=== PATIENT | male | born 1980 | race Caucasian/White ===

== ENCOUNTER 2023-02-07 11:44 | Emergency (ER) | payer OTHER, SELFPAY ==
[2023-02-07] VITALS (38 sets, daily range): BP systolic 136–149; BP diastolic 70–97; PULSE 63–76; RESP 2–26; TEMP 37.1; O2SAT 98
--- NOTE | 2023-02-07 12:03 | DI.CT_ITS ---
Exam(s) CT HEAD FACIAL WO EXAM: CT HEAD FACIAL WO CT HEAD FACIAL WO do facial CT face CLINICAL HISTORY: right lower facial droop upon waking at 0800,sensation of right facial full. TECHNIQUE: Imaging Protocol: Axial computed tomography images with coronal and sagittal reformatted images were created and reviewed COMPARISON: No exams were available for comparison FINDINGS: CT Head: Ventricles and Extra axial spaces: Normal in size and morphology for the patient's age. Hemorrhage: None. Cerebral parenchyma: Normal. Midline shift: None. Brainstem/Cerebellum: Normal. Calvarium: Normal. Visualized Paranasal sinuses/Mastoids: Minimal mucosal thickening. Soft Tissues: Unremarkable. CT Face: Facial Bones: No fracture is noted in facial bones. No destructive bony lesions. Sinuses and Mastoids: Minimal mucosal thickening. Globes, extraocular muscles, optic nerves and retrobulbar fat: Normal. Nasal septum deviated toward the right. Nasal cavity clear. Upper aerodigestive tract: Normal. Mandible and bilateral temporomandibular joints: Normal. Soft tissues: Normal. IMPRESSION: 1. No acute intracranial process. 2. No acute facial fracture. Minimal sinus mucosal thickening. RADIATION DOSE DELIVERED: 1,529.06mGy.cm Total DLP 1,529.06mGy.cm Total DLP DATA REPOSITORY: All CT scans at this facility are submitted to the National Radiology Data Registry (NRDR) Dose Index Registry (DIR) with the [employer] (ACR). RADIATION OPTIMIZATION: All CT scans at this facility use at least one of these dose optimization te chniques: automated exposure control; mA and/or kV adjustment per patient size (includes targeted exa ms where dose is matched to clinical indication); or iterative reconstruction. Is stool is 40 reasonably winged
--- NOTE | 2023-02-07 12:09 | ED.GENADUL_ITS ---
Discharge Plan Disposition Patient Disposition: Home Condition: Good Discharge Details Clinical Impression: Dubois's palsy Primary Care Provider: Unknown,Unknown ED Provider: Chely Ray Home Meds and New Rx's Prescriptions: New prednisolone sodium phosphate 30 mg tablet,disintegrating 30 mg PO BID Qty: 19 0RF Discharge Instructions Instructions: Dubois Palsy (ED) Additional Instructions: Take the steroid medication twice a day for the next 10 days. Call your primary care doctor on Wednesday to schedule an appointment within one week to followup on your visit here. Return to the emergency department for new or worsening symptoms. Medical Decision Making 43yo M with hx of HTN presenting for right sided facial droop and numbness. Last known normal yesterday evening at round 11pm prior to bed. This morning woke at 0900 with with sensation of fullness in his right cheek, right facial droop, and blurry vision on right. Reports vision essentially back to baseline on arrival. Vital signs reassuring; on exam he has right facial droop with no dysarthria, symmetric eyebrow raise, subjectively diminished sensation V1/V2/V3 on right. No other focal neurologic deficits. Does have some slight right maxillary tenderness. NIHSS 2 and symptoms improving. Given minor improving symptoms with LKN yesterday evening, would not do TPA regardless of etiology. Forehead sparing concerning for CVA/TIA rather than Dubois's palsy. Non-contrast head CT ordered and reviewed, no bleed or indication of acute stroke on my view, agree with radiology read below. CTA head and neck reviewed, no clear large vessel occlusion, agree with radiology read below. Labs as below, CBC & CMP unremarkable, UA negative, no suggestion of other etiology for patient's symptoms. EKG NSR, troponin negative, no chest pain. On reassessment patient reports symptoms have almost entirely resolved; no blurry vision, numbness improved, does have some continued right facial droop which is improving. Discussed with neurology Dr. Rodriguez at [facility]; symptoms thought to be most consistent with Dubois's palsy especially given watery right eye and sensation of cheek/ear fullness. Lyme panel sent, given first dose prednisolone here and discharged home on 10 course. Given eye patch to wear at night for protection. Discharged home; discharge instructions including return precautions were reviewed with patient who verbalized understanding. All questions were answered and they are in full agreement with the plan. Imaging Data Radiologic Study: Imaging: CT Scan Radiologist's impression: IMPRESSION: No acute intracranial abnormality. Radiologic Study #2: Imaging: CT Scan Radiologist's impression: IMPRESSION: No acute findings. Radiologic Study #3: Imaging: CT Scan Radiologist's impression: IMPRESSION: No significant intracranial vascular stenosis.? No large vessel occlusion. If further evaluation for recent, acute or subacute ischemic change is indicated, MR correlation recommended. Lab Data Lab results reviewed: Yes I reviewed the patient's lab results. Labs: Laboratory Tests Range/Units 02/07/23 02/07/23 02/07/23 12:10 12:10 12:10 WBC (4.4-10.8) 10^3/uL 9.44 RBC (4.36-5.78) 10^6/uL 5.01 Hgb (13.5-17.5) g/dL 14.9 Hct (40.0-50.0) % 43.5 MCV (80-95) fL 87 MCH (27.0-33.0) pg 29.7 MCHC (32.0-36.0) % 34.3 RDW (11.8-14.1) % 12.0 Plt Count (130-400) 10^3/uL 410 H MPV (8.0-11.0) fL 9.7 Immature Gran % 0.5 Neutrophils % 53.6 Lymphocytes % 32.3 Monocytes % 10.6 Eosinophils % 2.5 Basophils % 0.5 Nucleated RBC % (0.0-0.3) % 0.0 Absolute Neutrophils (1.2-6.7) 10^3/uL 5.05 Absolute Lymphocytes (1.2-3.4) 10^3/uL 3.05 Absolute Monocytes (0.1-0.8) 10^3/uL 1.00 H Absolute Eosinophils (0.0-0.7) 10^3/uL 0.24 Absolute Basophils (0.0-0.2) 10^3/uL 0.05 PT (9.3-11.0) sec 10.0 INR (0.9-1.1) 1.0 Sodium (136-145) mmol/L 140 Potassium (3.5-5.1) mmol/L 3.9 Chloride (98-107) mmol/L 103 Carbon Dioxide (21.0-32.0) mmol/L 28.1 Anion Gap (3-11) mmol/L 8.9 BUN (7-18) mg/dL 13 Creatinine (0.70-1.30) mg/dL 1.1 Est GFR (CKD-EPI 2020) (mL/min/1.73m2) 84.89 Glucose (74-106) mg/dL 80 Calcium (8.5-10.1) mg/dL 9.7 Magnesium (1.8-2.4) mg/dL 1.9 Total Bilirubin (0.2-1.0) mg/dL 0.5 AST (15-37) U/L 29 ALT (16-63) U/L 40 Alkaline Phosphatase (46-116) U/L 74 Troponin I (<or=60) ng/L < 50 Total Protein (6.4-8.2) g/dL 7.9 Albumin (3.4-5.0) g/dL 3.7 Urine Color (Yellow) Urine Clarity (Clear) Urine pH (5-8) Ur Specific [place] (1.005-1.025) Urine Protein (Negative) mg/dL Urine Ketones (Negative) mg/dL Urine Blood (Negative) Urine Nitrite (Negative) Urine Bilirubin (Negative) Urine Urobilinogen (Up to 0.2) mg/dL Ur Leukocyte Esterase (Negative) Urine Glucose (Negative) mg/dL Urine Opiates Screen (Negative) Urine Methadone Screen (Negative) Ur Barbiturates Screen (Negative) Ur Tricyclics Screen (Negative) Ur Amphetamines Screen (Negative) U Benzodiazepines Scrn (Negative) Urine Cocaine Screen (Negative) Ur THC Screen (Negative) Range/Units 02/07/23 02/07/23 12:32 12:32 WBC (4.4-10.8) 10^3/uL RBC (4.36-5.78) 10^6/uL Hgb (13.5-17.5) g/dL Hct (40.0-50.0) % MCV (80-95) fL MCH (27.0-33.0) pg MCHC (32.0-36.0) % RDW (11.8-14.1) % Plt Count (130-400) 10^3/uL MPV (8.0-11.0) fL Immature Gran % Neutrophils % Lymphocytes % Monocytes % Eosinophils % Basophils % Nucleated RBC % (0.0-0.3) % Absolute Neutrophils (1.2-6.7) 10^3/uL Absolute Lymphocytes (1.2-3.4) 10^3/uL Absolute Monocytes (0.1-0.8) 10^3/uL Absolute Eosinophils (0.0-0.7) 10^3/uL Absolute Basophils (0.0-0.2) 10^3/uL PT (9.3-11.0) sec INR (0.9-1.1) Sodium (136-145) mmol/L Potassium (3.5-5.1) mmol/L Chloride (98-107) mmol/L Carbon Dioxide (21.0-32.0) mmol/L Anion Gap (3-11) mmol/L BUN (7-18) mg/dL Creatinine (0.70-1.30) mg/dL Est GFR (CKD-EPI 2020) (mL/min/1.73m2) Glucose (74-106) mg/dL Calcium (8.5-10.1) mg/dL Magnesium (1.8-2.4) mg/dL Total Bilirubin (0.2-1.0) mg/dL AST (15-37) U/L ALT (16-63) U/L Alkaline Phosphatase (46-116) U/L Troponin I (<or=60) ng/L Total Protein (6.4-8.2) g/dL Albumin (3.4-5.0) g/dL Urine Color (Yellow) Yellow Urine Clarity (Clear) Clear Urine pH (5-8) 6.0 Ur Specific [place] (1.005-1.025) 1.020 Urine Protein (Negative) mg/dL Negative Urine Ketones (Negative) mg/dL Negative Urine Blood (Negative) Negative Urine Nitrite (Negative) Negative Urine Bilirubin (Negative) Negative Urine Urobilinogen (Up to 0.2) mg/dL 1.0 H Ur Leukocyte Esterase (Negative) Negative Urine Glucose (Negative) mg/dL Negative Urine Opiates Screen (Negative) Negative Urine Methadone Screen (Negative) Negative Ur Barbiturates Screen (Negative) Negative Ur Tricyclics Screen (Negative) Negative Ur Amphetamines Screen (Negative) Negative U Benzodiazepines Scrn (Negative) Negative Urine Cocaine Screen (Negative) Negative Ur THC Screen (Negative) Positive A HPI General Mode of arrival: ambulatory . Date/Time Provider Initiated Documentation: 02/07/23 12:03 . Limitations to Documentation: no limitations . Information obtained by: patient and family . HPI Narrative: 43yo M with hx of HTN presenting for right sided facial droop and numbness. Last known normal yesterday evening at round 11pm prior to bed. This morning woke at 0900 with with sensation of fullness in his right cheek, right facial droop, and blurry vision on right. Vision is improving and now almost back to baseline; 'fullness' and droop persist. Aside from face, no numbness/tingling/weakness. No headache, nausea, vomiting, double vision. No recent injury/surgery/fall. Has never experienced similar symptoms in the past. URI symptoms one week ago, since resolved. He is otherwise in his usual state of health. Related Data Home Medications Medication Instructions Recorded Confirmed prednisolone sodium phosphate 30 30 mg PO BID #19 tabs 02/07/23 mg disintegrating tablet Previous Rx's Medication Instructions Recorded prednisolone sodium phosphate 30 30 mg PO BID #19 tabs 02/07/23 mg disintegrating tablet General Stated Complaint: FacialProb CAROL: 3 Review of Systems Narrative: see HPI PFSH All Active Problems (Updated 02/07/23 @ 15:57 by Chely Ray MD) Dubois's palsy (Acute) Social History Smoking/Tobacco Use Status: Current-Occasional Tobacco Type: cigars Smoking risk assessment performed?: Yes Alcohol Intake: current Alcohol Intake frequency: a few times a week Substance use type: marijuana Housing: house Do you feel safe at home: Yes Do you feel safe in your relationship?: Yes Exam Narrative Exam Narrative: General: Alert, well appearing, well nourished, in no acute distress. Head: Normocephalic, atraumatic Neck: Trachea midline, Neck supple. ENT: MMM. No oropharygeal lesions or exudate. Slight right maxillary tenderness TTP Cardiac: RRR, no murmurs appreciated Resp: No respiratory distress. CTAB. Abd: Soft, non-distended, nontender : No suprapubic tenderness. Extremities: No deformities. No peripheral edema. Neuro: GCS 15. PERRLA. EOMI. Fluent speech, no dysarthria. Motor- 5/5 strength symmetric bilateral upper and lower extremities Sensation- Intact to light touch and symmetric multiple dermatomes including upper and lower extremities Coordination- No dysmetria on finger to nose Gait/station: Normal stance. No truncal ataxia. Steady gait with equal normal steps CRANIAL NERVES: II: Pupils equal and reactive, III, IV, : EOM intact, no gaze preference or deviation, no nystagmus. V: Diminished sensation in V1, V2, and V3 segments right compared to left. VII: Right facial droop. Symmetric eyebrow raise. VIII: normal hearing to speech IX, X: normal palatal elevation, no uvular deviation XI: 5/5 head turn and 5/5 shoulder shrug bilaterally XII: midline tongue protrusion Course Vital Signs Vital signs: Vital Signs Temperature 37.1 C 02/07/23 11:46 Pulse 69 02/07/23 11:46 Respiratory Rate 18 02/07/23 11:46 Blood Pressure 149/97 H 02/07/23 11:46 Pulse Oximetry 98 02/07/23 11:46 Temperature 37.1 C 02/07/23 11:46 Pulse 69 02/07/23 11:46 Respiratory Rate 18 02/07/23 11:46 Respiratory Effort Normal 02/07/23 11:55 Blood Pressure 149/97 H 02/07/23 11:46 Blood Pressure Position Sitting 02/07/23 11:46 Pulse Oximetry 98 02/07/23 11:46 Oxygen Delivery Method Room Air 02/07/23 11:46 Oxygen Flow Rate 0 02/07/23 11:46 Pain Level 5 02/07/23 11:53 PAWSS Have you Been Recently Intoxicated or Drunk Within the Last 30 days?: No Have you Ever Experienced Previous Episodes of Alcohol Withdrawal?: No Have you ever Experienced Withdrawal Seizures?: No Have you ever Experienced Delirium Tremens(DT)s?: No Have you ever undergone Alcohol Rehabilitation Treatment (i.e, inpt ot outpatient treatment programs)?: No Have you ever Experienced Blackouts?: No Have you ever Combined Alcohol with other Downers within the last 90 days?: No Have you ever Combined Alcohol with any other Substance of Abuse during the last 90 days?: No Positive Blood Alcohol level on Presentation? [PCS.BAL]: No Evidence of Increased Autonomic Activity (i.e. HR>120, tremor, sweating, agitation, nausea)?: No Result: 0
[2023-02-07 12:21] LABS: Abs Immature Grans 0.05 10^3/uL (0.0-0.06); Absolute Basophil Count 0.05 10^3/uL (0.0-0.2); Absolute Eosinophil Count 0.24 10^3/uL (0.0-0.7); Absolute Lymphocyte Count 3.05 10^3/uL (1.2-3.4); Absolute Neutrophil Count 5.05 10^3/uL (1.2-6.7); Basophils % 0.5; Eosinophils % 2.5; HCT 43.5 % (40.0-50.0); HGB 14.9 g/dL (13.5-17.5); Immature Grans % 0.5; Lymphocytes % 32.3; MCH 29.7 pg (27.0-33.0); MCHC 34.3 % (32.0-36.0); MCV 87 fL (80-95); MPV 9.7 fL (8.0-11.0); Monocytes % 10.6; Neutrophils % 53.6; Platelet Count 410 10^3/uL (130-400); RBC 5.01 10^6/uL (4.36-5.78); RDW-SD 38.6 fL; WBC 9.44 10^3/uL (4.4-10.8)
--- NOTE | 2023-02-07 12:31 | DI.VRAD_ITS ---
PROCEDURE INFORMATION: Exam: CT Head Without Contrast Exam date and time: 02/07/2023 12:19 PM Age: 43 years old Clinical indication: Stroke-like symptoms; Other: Right lower facial droop upon waking at 0800, sensation of right facial full TECHNIQUE: Imaging protocol: Computed tomography of the head without contrast. Radiation optimization: All CT scans at this facility use at least one of these dose optimization techniques: automated exposure control; mA and/or kV adjustment per patient size (includes targeted exams where dose is matched to clinical indication); or iterative reconstruction. Other technique: STROKE PROTOCOL was implemented. COMPARISON: No relevant prior studies available. FINDINGS: Brain: Ventricles, sulci are within normal limits. There is no acute hemorrhage. There is no mass or shift. There is no acute cortical or major vascular territory infarct. There are no significant extra-axial collections. There is no hyperdense intravascular thrombus. Cerebral ventricles: No ventricular enlargement/hydrocephalus. Paranasal sinuses: Visualized sinuses are unremarkable. No fluid levels. Mastoid air cells: Visualized mastoid air cells are well aerated. Bones/joints: Unremarkable. No acute fracture. Mild degenerative changes are seen in the upper cervical spine. Soft tissues: Unremarkable. IMPRESSION: No acute intracranial abnormality. ASSESSMENT: ASPECTS ([place] Stroke Program Early CT Score) is 10. PROCEDURE INFORMATION: Exam: CT Maxillofacial Without Contrast Exam date and time: 02/07/2023 12:19 PM Age: 43 years old Clinical indication: Stroke-like symptoms; Other: Right lower facial droop upon waking at 0800, sensation of right facial full TECHNIQUE: Imaging protocol: Computed tomography of the face without contrast. Radiation optimization: All CT scans at this facility use at least one of these dose optimization techniques: automated exposure control; mA and/or kV adjustment per patient size (includes targeted exams where dose is matched to clinical indication); or iterative reconstruction. COMPARISON: No relevant prior studies available. FINDINGS: Orbital cavities: No significant orbital abnormality. Extra-ocular muscles are symmetric. No abnormality of the intraorbital fat. No intra-ocular abnormality. Bones/joints: No acute fracture. Paranasal sinuses: Paranasal sinuses are normally developed and well pneumatized. There is no significant sinus opacification, fluid level nor intra sinus hemorrhage. Minimal sinus mucoperiosteal thickening is noted. There is rightward bowing of the nasal septum and a rightward directed nasal septal spur. There is no evidence of a discrete mass or polyp within the nasal cavity. The ostiomeatal units are patent bilaterally. Soft tissues: Unremarkable. IMPRESSION: No acute findings. Dictated and Authenticated by: Pretty Bustamante MD. Ordering:DEE Mo MD
[2023-02-07 12:38] LABS: ALT 40 U/L (16-63); AST 29 U/L (15-37); Albumin 3.7 g/dL (3.4-5.0); Alkaline Phosphatase 74 U/L (46-116); Anion Gap 8.9 mmol/L (3-11); BUN 13 mg/dL (7-18); Bilirubin, Total 0.5 mg/dL (0.2-1.0); CO2 28.1 mmol/L (21.0-32.0); CREATININE 1.1 mg/dL (0.70-1.30); Calcium 9.7 mg/dL (8.5-10.1); Chloride 103 mmol/L (98-107); Estimated GFR 84.89 (mL/min/1.73m2); Glucose 80 mg/dL (74-106); Magnesium 1.9 mg/dL (1.8-2.4); Potassium 3.9 mmol/L (3.5-5.1); Sodium 140 mmol/L (136-145); Total Protein 7.9 g/dL (6.4-8.2); Troponin I < 50 ng/L (<or=60)
--- NOTE | 2023-02-07 12:45 | DI.CT_ITS ---
Exam(s) CT BRAIN NECK CTA EXAM: CT BRAIN NECK CTA CLINICAL HISTORY: right facial droop. TECHNIQUE: Imaging Protocol: Axial CT angiography was performed with multi-slice acquisition and mu lti-planar and 3D reconstructions. CONTRAST MATERIAL: Intravenous: Omnipaque 350 Contrast volume:100 mL COMPARISON: CT CT HEAD FACIAL WO from 02/07/2023 FINDINGS: CT Head W/O and W contrast: Ventricles and Extra axial spaces: Normal in size and morphology for the patient's age. Hemorrhage: None. Cerebral parenchyma: Normal. Midline shift: None. Brainstem/Cerebellum: Normal. Calvarium: Normal. Visualized Paranasal sinuses/Mastoids: Clear. Soft Tissues: Unremarkable. Enhancement: Normal. CTA Brain W: Internal Carotid Arteries: Petrous: Normal. Cavernous: Normal. Cerebral: Normal. Middle Cerebral Arteries: Right: No aneurysm, occlusion or significant stenosis. Left: No aneurysm, occlusion or significant stenosis. Anterior Cerebral Arteries: Right: No aneurysm, occlusion or significant stenosis. Left: No aneurysm, occlusion or significant stenosis. Posterior cerebral Arteries: Right: No aneurysm, occlusion or significant stenosis. Left: No aneurysm, occlusion or significant stenosis. Vertebral Arteries: Right: No aneurysm, occlusion or significant stenosis. Left: No aneurysm, occlusion or significant stenosis. Basilar Artery: No aneurysm, occlusion or significant stenosis. CTA Neck W: Common Carotid: Right: No dissection, occlusion or significant stenosis. Left: No dissection, occlusion or significant stenosis. External Carotid: Right: No dissection, occlusion or significant stenosis. Left: No dissection, occlusion or significant stenosis. Internal Carotid: Right: No dissection, occlusion or significant stenosis. Left: No dissection, occlusion or significant stenosis. Vertebral Artery: Right: No dissection, occlusion or significant stenosis. Left: No dissection, occlusion or significant stenosis. Lung Apices: Normal. Bones: Mild degenerative changes. No acute abnormality. Soft Tissues: Normal. IMPRESSION: 1. Normal CTA examination of the [place]. 2. Unremarkable CT Head. 3. Normal CTA examination of the neck. No atherosclerotic changes are visible. RADIATION DOSE DELIVERED: 1,454.95mGy.cm Total DLP DATA REPOSITORY: All CT scans at this facility are submitted to the National Radiology Data Registry (NRDR) Dose Index Registry (DIR) with the [employer] (ACR). RADIATION OPTIMIZATION: All CT scans at this facility use at least one of these dose optimization te chniques: automated exposure control; mA and/or kV adjustment per patient size (includes targeted exa ms where dose is matched to clinical indication); or iterative reconstruction.
--- NOTE | 2023-02-07 12:45 | RT.EKG_ITS ---
APPROVED REPORT Exam: Resting ECG Reason for Exam: stroke symptoms Patient Location: E HR:68 bpm ECG Measurements Heart Rate 68 AXIS FL 161 P 3 QRSd 91 QRS 91 QT 376 T -9 QTc 400 Conclusion Sinus rhythm...60- [address] segment or T wave abnormalities to suggest occlusive PR
[2023-02-07 12:54] LABS: Bilirubin Negative (Negative); Blood Negative (Negative); Clarity Clear (Clear); Glucose Negative (Negative); Ketones Negative (Negative); Leukocyte Esterase Negative (Negative); Nitrite Negative (Negative)
[2023-02-07 13:15] LABS: *AMPHETAMINES SCREEN URINE Negative (Negative); *BARBITURATES SCREEN URINE Negative (Negative); *BENZODIAZEPINES SCREEN URINE Negative (Negative); Cannabinoids THC Positive (Negative); Cocaine Screen,Urine Negative (Negative); METHADONE URINE SCREEN Negative (Negative); OPIATES URINE SCREEN Negative (Negative)
[2023-02-07 13:16] LABS: Tricyclic Antidepressants Negative (Negative)
[2023-02-07] MEDS: Normal Saline Flush 10 ML SYR IVP (13:32)
[2023-02-07] MEDS: Normal Saline - Diluent 50 ML VIAL IJ (13:33)
[2023-02-07] MEDS: Omnipaque 350 MG/ML 100 ML BTL IJ (13:33)
--- NOTE | 2023-02-07 14:23 | DI.VRAD_ITS ---
PROCEDURE INFORMATION: Exam: CTA Head With Contrast, Arteriography Exam date and time: 02/07/2023 1:50 PM Age: 43 years old Clinical indication: Other: Right facial droop TECHNIQUE: Imaging protocol: Computed tomographic angiography of the head with contrast. Exam focused on the arteries. 3D rendering (Not supervised by radiologist): MIP and/or 3D reconstructed images were created by the technologist. Radiation optimization: All CT scans at this facility use at least one of these dose optimization techniques: automated exposure control; mA and/or kV adjustment per patient size (includes targeted exams where dose is matched to clinical indication); or iterative reconstruction. Contrast material: OMNIPAQUE 350; Contrast volume: 100 ml; Contrast route: INTRAVENOUS (IV); COMPARISON: CT HEAD FACIAL WO 02/07/2023 12:19 PM FINDINGS: ANTERIOR CIRCULATION: Right internal carotid artery: Intracranial segment is patent with no significant stenosis. No aneurysm. Ophthalmic artery visualized. Right middle cerebral artery: No occlusion or significant stenosis. No aneurysm. Right anterior cerebral artery: No occlusion or significant stenosis. No aneurysm. Right A1 segment is dominant Left internal carotid artery: Intracranial segment is patent with no significant stenosis. No aneurysm. Ophthalmic artery visualized Left middle cerebral artery: No occlusion or significant stenosis. No aneurysm. Left anterior cerebral artery: No occlusion or significant stenosis. No aneurysm. POSTERIOR CIRCULATION: Right vertebral artery: No occlusion or significant stenosis. No aneurysm. Left vertebral artery: No occlusion or significant stenosis. No aneurysm. Left vertebral artery is mildly dominant. Left PICA visualized Basilar artery: No occlusion or significant stenosis. No aneurysm. Right anterior inferior cerebellar artery, both superior cerebellar arteries identified. Right posterior cerebral artery: No occlusion or significant stenosis. No aneurysm. Left posterior cerebral artery: No occlusion or significant stenosis. No aneurysm. Brain: Patient had noncontrast enhanced examination dictated separately. No new/additional findings are identified on the postcontrast images. There is no enhancing mass. Cerebral ventricles: No significant ventricular enlargement. Bones/joints: Unremarkable. No acute fracture. Soft tissues: Unremarkable. IMPRESSION: No significant intracranial vascular stenosis. No large vessel occlusion. If further evaluation for recent, acute or subacute ischemic change is indicated, MR correlation recommended. PROCEDURE INFORMATION: Exam: CTA Neck With Contrast Exam date and time: 02/07/2023 1:50 PM Age: 43 years old Clinical indication: Other: Right facial droop TECHNIQUE: Imaging protocol: Computed tomographic angiography of the neck with contrast. 3D rendering (Not supervised by radiologist): MIP and/or 3D reconstructed images were created by the technologist. Radiation optimization: All CT scans at this facility use at least one of these dose optimization techniques: automated exposure control; mA and/or kV adjustment per patient size (includes targeted exams where dose is matched to clinical indication); or iterative reconstruction. Contrast material: OMNIPAQUE 350; Contrast volume: 100 ml; Contrast route: INTRAVENOUS (IV); COMPARISON: CT HEAD FACIAL WO 02/07/2023 12:19 PM FINDINGS: CT angiography of the aortic arch demonstrates that the origins of the brachiocephalic left common carotid artery left subclavian artery are patent. Flow is seen distally in the subclavian arteries. Right common carotid artery: No stenosis. No dissection or occlusion. Right internal carotid artery: No stenosis of the extracranial segment. No dissection or occlusion. Right external carotid artery: No occlusion or stenosis of the origin. Left common carotid artery: No stenosis. No dissection or occlusion. Left internal carotid artery: No stenosis of the extracranial segment. No dissection or occlusion. Left external carotid artery: No occlusion or stenosis of the origin. Right vertebral artery: No stenosis. No dissection or occlusion. Left vertebral artery: No stenosis. No dissection or occlusion. Soft tissues: There is no evidence of a discrete soft tissue mass in the neck. There are small cervical nodes which may be reactive. There is no significant airspace consolidation at the lung apices. Bones/joints: There is no acute bony abnormality identified. There are findings consistent with cervical spondylosis, degenerative disc disease. There is no acute or destructive bony abnormality identified. IMPRESSION: No significant extracranial vascular stenosis. Cervical spondylosis, degenerative disc disease. REFERENCES: NASCET CRITERIA. The degree of stenosis in the cervical segment of the internal carotid artery is based on NASCET criteria. Normal is no stenosis. Mild is less than 50% stenosis. Moderate is 50-69% stenosis. Severe is 70% to 99% stenosis. Total occlusion is no detectable patent lumen. Dictated and Authenticated by: Pretty Bustamante MD. Ordering:DEE Mo MD
[2023-02-07] MEDS: predniSONE 20 MG TAB PO (16:06)
[2023-02-09 11:19] LABS: Lyme Ab w Rflx to Lyme Confirm Positive (Negative)
[2023-02-09 13:39] LABS: Lyme IgG Ab Positive (Negative); Lyme IgM Ab Positive (Negative)
[2023-02-10 21:08] LABS: Anaplasma phagocytophilum Negative (Negative); B. miyamotoi PCR Negative (Negative); Babesia divergens/MO-1 Negative (Negative); Babesia duncani Negative (Negative); Babesia microti Negative (Negative); Ehrlichia chaffeensis Negative (Negative); Ehrlichia ewingii/canis Negative (Negative); Ehrlichia muris eauclairensis Negative (Negative)
== END 2023-02-07 16:16 | disposition home or self-care (01) ==
PROVIDERS: Emergency Provider Student in an Organized Health Care Education/Training Program
DX: G51.0 Bell's palsy (principal)
CPT/HCPCS: 36415; 70496; 70498; 80053; 80307; 82962; 86617; 87798; 93005; 99285; 70450; 70486; 81003; 83735; 84484; 85025; 85610; 86618; 93010; 99284; J3490; J7512